=== PATIENT | male | born 1975 | race Caucasian/White ===

== ENCOUNTER 2019-07-21 15:26 | Emergency (ER) | payer BC, OTHER ==
[~2019-07-21] VITALS: Ht 177.8 cm; Wt 165.9 kg
[2019-07-21 15:50] LABS: BASOPHILS % (AUTO) 0.3 % (0-1); EOSINOPHILS # (AUTO) 0.1 X10'3 (0-0.9); EOSINOPHILS % (AUTO) 0.9 % (0-6); HEMATOCRIT 47.4 % (42.0-52.0); HEMOGLOBIN 15.7 g/dl (14.0-17.9); LYMPHOCYTES # (AUTO) 1.6 X10'3 (1.1-4.8); LYMPHOCYTES % (AUTO) 15.6 % (21-51); MEAN CORPUSCULAR HEMOGLOBIN 28.8 PG (27.0-31.0); MEAN CORPUSCULAR HGB CONC 33.2 g/dL (33.0-36.5); MEAN CORPUSCULAR VOLUME 86.6 FL (78-98); MEAN PLATELET VOLUME 7.4 FL (7.4-10.4); MONOCYTES # (AUTO) 0.8 X10'3 (0-0.9); NEUTROPHILS # (AUTO) 7.8 X10'3 (1.8-7.7); NEUTROPHILS % (AUTO) 75.2 % (42-75); PLATELET COUNT 329 X10'3 (140-440); RED BLOOD COUNT 5.48 X10'6 (4.70-6.10); RED CELL DISTRIBUTION WIDTH 13.9 % (11.5-14.5); WHITE BLOOD COUNT 10.3 X10'3 (4.5-11.0)
[2019-07-21 16:02] LABS: PARTIAL THROMBOPLASTIN TIME 25 SECONDS (22-32)
[2019-07-21 16:04] LABS: ALANINE AMINOTRANSFERASE 21 U/L (12-78); ALBUMIN 4.3 G/DL (3.4-5.0); ALBUMIN/GLOBULIN RATIO 1.2 (1.1-1.5); ALKALINE PHOSPHATASE 66 IU/L (46-116); ANION GAP 7 (8-16); ASPARTATE AMINO TRANSFERASE 23 U/L (10-37); BILIRUBIN,TOTAL 0.5 MG/DL (0.1-1.0); BLOOD UREA NITROGEN 12 MG/DL (7-18); BUN/CREATININE RATIO 8.8 (5.4-32.0); CALCIUM 9.6 MG/DL (8.5-10.1); CHLORIDE 106 MMOL/L (99-107); CREATININE 1.36 MG/DL (0.60-1.10); GLUCOSE 105 MG/DL (70-104); POTASSIUM 3.6 MMOL/L (3.5-5.1); SODIUM 143 MMOL/L (135-145); TOTAL CARBON DIOXIDE 30.4 MMOL/L (24-32); eGFR 57 ML/MIN
[2019-07-21 16:08] LABS: TROPONIN I < 0.04 NG/ML (0.0-0.05)
[2019-07-21] MEDS ORDERED: ACYC-202 PO (16:38)
[2019-07-21] MEDS ORDERED: PRED20TA PO (16:38)
[2019-07-21 17:06] VITALS: BP 159/117
== END 2019-07-21 17:09 | disposition home or self-care (01) ==
LOC: ER 15:27
DX: G51.0 Bell's palsy (principal); I10 Essential (primary) hypertension; F31.9 Bipolar disorder, unspecified; Z79.899 Other long term (current) drug therapy
CPT/HCPCS: 36415; 70450; 71045; 80053; 82948; 84484; 85025; 85610; 85730; 93005; 99285

== ENCOUNTER 2020-10-15 10:04 | Emergency (ER) | payer OTHER ==
[~2020-10-15] VITALS: Ht 177.8 cm; Wt 189.9 kg
[2020-10-15 11:33] VITALS: BP 178/106
[2020-10-15] MEDS ORDERED: SULF1TAB49 PO (12:08)
== END 2020-10-15 14:37 | disposition home or self-care (01) ==
LOC: ER 10:05
DX: N43.3 Hydrocele, unspecified (principal); N50.89 Other specified disorders of the male genital organs; I10 Essential (primary) hypertension; F31.9 Bipolar disorder, unspecified; Z79.2 Long term (current) use of antibiotics
CPT/HCPCS: 76870; 93976; 99284